=== PATIENT | male | born 2000 | race Hispanic/Latino ===

== ENCOUNTER 2023-05-26 05:28 | Emergency (ER) | payer OTHER, SELFPAY ==
[2023-05-26 05:35] VITALS: BP 126/87; PULSE 69; RESP 18; TEMP 36.8; O2SAT 98; BMI 32.8
--- NOTE | 2023-05-26 05:49 | ED.EXTPRO ---
HPI - Extremity Problem General Chief complaint: Extremity Problem,Nontraumatic Stated complaint: left should pain and neck Time Seen by Provider: 05/26/23 05:41 History of Present Illness HPI Narrative: 23 year old male who presents with left neck/shoulder strain after carrying a weighted vest proximally x 3 days ago. Pain is described as a dull, throbbing ache that is worse to palpation and range of motion. Tylenol used occasionally for symptom relief. No other complaints or associated symptoms noted. Patient arrives via private vehicle. Patient is awake, alert in no apparent distress and maintaining his own airway. Related Data Previous Rx's Medication Instructions Recorded methocarbamol 500 mg tablet 500 mg PO TID 4 days #12 tabs 05/26/23 Review of Systems Review of Systems Narrative: See HPI for pertinent positives. Otherwise review of systems negative Exam Initial Vital Signs Initial Vital Signs: Vital Signs Temperature 98.2 F 05/26/23 05:35 Pulse Rate 69 05/26/23 05:35 Respiratory Rate 18 05/26/23 05:35 Blood Pressure 126/87 05/26/23 05:35 Pulse Oximetry 98 05/26/23 05:35 Oxygen Delivery Method Room Air 05/26/23 05:35 Const General: cooperative, healthy appearing, comfortable, well developed, well groomed, No acute distress, No diaphoretic and No ill appearing HENMT Head: normal to inspection, normocephalic, atraumatic and No contusion Nose: external nose normal, nares normal and No epistaxis Face and sinus: normal facial exam and face symmetric Eyes General: Yes appearance normal, both eyes and all related structures Neck Neck: normal visual inspection, no meningeal signs, trachea midline, torticollis and No JVD Chest Chest: normal inspection of the chest Resp Effort & Inspection: normal respiratory effort, able to speak in complete sentences, normal respiratory pattern, not labored and no respiratory distress Cardio Rate: regular rate Rhythm: regular rhythm Pulses: radial pulses present GI Inspection: normal to inspection Other: Exam deferred Back/Spine/Pelvis Back: normal to inspection and No crepitance Skin General: no rashes or lesions noted and elasticity normal Neuro General: patient alert, patient awake, patient oriented x3, gait normal, moves all extremities and no focal motor deficits Extrem General: normal to inspection, capillary refill normal and normal exam except as noted (Left upper extremity ROM limited due to pain) Psych Appearance: grossly normal and well kempt Course Course Course Narrative: See MDM Orders Ordered: Discontinued Medications Ibuprofen (Ibuprofen 400 Mg Tablet) 800 mg PO NOW ONE Stop: 05/26/23 05:45 Last Admin: 05/26/23 05:52 Dose: 800 mg Vital Signs Vital signs: Vital Signs - 8 hr 05/26/23 05:35 05/26/23 05:52 Temperature 98.2 F 98.2 F Pulse Rate 69 Respiratory Rate 18 Blood Pressure 126/87 Pulse Oximetry 98 Oxygen Delivery Method Room Air MDM - Extremity (Nontraumatic) Differential Diagnosis Differential diagnosis: Likely cellulitis, superficial thrombophlebitis and other (Torticollis) MDM Narrative Medical decision making narrative: Patient presents with symptoms suggestive acute muscle strain with torticollis. Patient otherwise appears clinically well and comfortable. The patient is afebrile. Patient shows no signs of meningitis or underlying infection/abscess. Rotator cuff injury remains in differential. Limited range of motion due to pain discomfort. Patient most likely suffered muscle strain due to overuse injury. Ibuprofen 800 mg p.o. given along with prescription for Robaxin. PCP follow-up recommended within 1 week. Return precautions given. Patient discharged home in stable condition and able to ambulate well without assistance at time of discharge. Discharge Plan Departure Patient Disposition: Home Clinical Impression: Acute strain of neck muscle Qualifiers: Encounter type: initial encounter Qualified Code(s): S16.1XXA - Strain of muscle, fascia and tendon at neck level, initial encounter Instructions: Neck Sprain Activity Restrictions/Additional Instructions: Use ibuprofen 600 mg every 6 hours for central leaf of the neck is 3 days along with Robaxin as directed for muscle relaxation Prescriptions: New methocarbamol 500 mg tablet 500 mg PO TID 4 Days Qty: 12 0RF Referrals: ProviderSharmaine [Primary Care Provider] - As soon as possible Stand Alone Forms: Patient Portal/API, Work Release Note
[2023-05-26 05:52] VITALS: TEMP 36.8
[2023-05-26] MEDS: IBUPROFEN 400 MG TABLET 800 MG PO (05:52)
== END 2023-05-26 05:58 | disposition home or self-care (01) ==
PROVIDERS: Emergency Provider Emergency Medicine
DX: S16.1XXA Strain of muscle, fascia and tendon at neck level, initial encounter (principal); X50.0XXA Overexertion from strenuous movement or load, initial encounter; Y93.B9 Activity, other involving muscle strengthening exercises
CPT/HCPCS: 99283